=== PATIENT | female | born 1995 | race Caucasian/White ===

== ENCOUNTER 2022-12-15 19:19 | Observation (INO) | payer BC, SELFPAY ==
[2022-12-15 19:30] VITALS: BP 107/68; PULSE 88; RESP 18; TEMP 36.8
[2022-12-15] MEDS: ACETAMINOPHEN 500 MG TABLET 1000 MG PO (19:54)
[2022-12-15 20:02] VITALS: BMI 35.3
--- NOTE | 2022-12-15 20:04 | OBADM ---
This patient, Frances Matos, admitted to the OB room OB Post 116 for observation. Patient/family oriented to hospital policies and general routines including ID bracelet, bed and alarms, visiting hours, pain management, procedures, bathroom and other care routines, personal items, smoking policy, room service/diet, and visiting hours. Patient/Family are encouraged to report perceived risks to care and to ask questions if they do not understand what they are told or what they should do.
--- NOTE | 2022-12-15 20:08 | PC.NURSE ---
1930 - [facility]'s doppled at 136.
--- NOTE | 2022-12-22 08:00 | PM.OBTRLD ---
OB - Triage/Final Diagnosis Visit Information Comments/Additional reasons for admission: I have assessed the risk for this patient, Frances Matos, and determined that she would benefit from observation care. Final Diagnosis (1) Abdominal pain affecting : Code(s): O26.899 - Other specified related conditions, unspecified trimester; R10.9 - Unspecified abdominal pain Status: Acute
== END 2022-12-15 20:00 | disposition home or self-care (01) ==
PROVIDERS: Admitting Provider Obstetrics & Gynecology; PCP Family Medicine; Visit Provider Obstetrics & Gynecology
DX: O26.892 Other specified pregnancy related conditions, second trimester (principal); R10.9 Unspecified abdominal pain; Z3A.21 21 weeks gestation of pregnancy
CPT/HCPCS: 99199; A9270

== ENCOUNTER 2023-03-02 22:54 | Observation (INO) | payer BC, SELFPAY ==
[2023-03-02 23:44] LABS: Appearance Urine Cloudy (Clear); Bilirubin Urine Negative (Negative); Blood Urine Negative (Negative); Color Urine Dark Yellow (Yellow); Glucose Urine UA Negative (Negative); Ketones Urine 2+ mg/dL (Negative); Leukocyte Esterase Ur 2+ LEU/UL (Negative); Nitrate Urine Negative (Negative); Non Pathogenic Casts 0-2; Protein Urine 1+ mg/dL (Negative); RBC Urine 0-2 /hpf (0-2); Specific Grav Ur 1.031 (1.001-1.035); Squamous Epithelial Cell Urine None seen /hpf (Few); WBC Urine 51-100 /hpf
[2023-03-02 23:45] LABS: Bacteria Urine 1+ /hpf
[2023-03-02 23:47] LABS: Add Urine Microscopic? YES
[2023-03-03] VITALS (18 sets, daily range): PULSE 84–107; O2SAT 97–100; BMI 38.4
[2023-03-03] MEDS: TERBUTALINE SULFATE 1 MG/ML VIAL 0.25 MG SUB-Q ×2 (00:15→00:37)
--- NOTE | 2023-03-03 01:48 | OBADM ---
This patient, Frances Matos, admitted to the OB room OB Post 117 for observation. Patient/family oriented to hospital policies and general routines including ID bracelet, bed and alarms, visiting hours, pain management, procedures, bathroom and other care routines, personal items, smoking policy, room service/diet, and visiting hours. Patient/Family are encouraged to report perceived risks to care and to ask questions if they do not understand what they are told or what they should do.
--- NOTE | 2023-03-12 12:11 | P.PNOB_ITS ---
OB - Triage/Final Diagnosis Visit Information Reason for evaluation: threatened labor Comments/Additional reasons for admission: I have assessed the risk for this patient, Frances Matos, and determined that she would benefit from observation care. Evaluation Laboratory results: Laboratory Tests 03/02/23 23:32 Urine Color Dark yellow Urine Appearance Cloudy H Urine pH 6.0 Ur Specific [place] 1.031 Urine Protein 1+ H Urine Glucose (UA) Negative Urine Ketones 2+ H Ur Blood (Man) Negative Urine Nitrate Negative Urine Bilirubin Negative Urine Urobilinogen 1.0 Leukocyte Esterase Rfl 2+ H Urine RBC 0-2 Urine WBC 51-100 H Ur Squamous Epith Cells None seen Urine Bacteria 1+ Urine Casts 0-2
== END 2023-03-03 01:55 | disposition home or self-care (01) ==
PROVIDERS: Admitting Provider Obstetrics & Gynecology; Visit Provider Obstetrics & Gynecology
DX: O47.03 False labor before 37 completed weeks of gestation, third trimester (principal); Z3A.33 33 weeks gestation of pregnancy
CPT/HCPCS: 81001; 87077; 87086; 87088; 96372; G0378; G0379; J3105

== ENCOUNTER 2023-04-02 17:15 | Observation (INO) | payer BC, SELFPAY ==
--- NOTE | 2023-04-02 17:20 | OBADM ---
This patient, Frances Matos, admitted to the OB room Labor/Delivery/Recovery 106 for observation. Patient/family oriented to hospital policies and general routines including ID bracelet, bed and alarms, visiting hours, pain management, procedures, bathroom and other care routines, personal items, smoking policy, room service/diet, and visiting hours. Patient/Family are encouraged to report perceived risks to care and to ask questions if they do not understand what they are told or what they should do.
[2023-04-02 18:00] VITALS: BP 99/55; PULSE 98
[2023-04-02 18:10] VITALS: BMI 38.5
[2023-04-02 18:15] VITALS: BP 99/63; PULSE 96
[2023-04-02 18:30] VITALS: BP 100/65; PULSE 112
--- NOTE | 2023-04-05 13:31 | PM.OBTRLD ---
OB - Triage/Final Diagnosis Visit Information Comments/Additional reasons for admission: I have assessed the risk for this patient, Frances Matos, and determined that she would benefit from observation care.
--- NOTE | 2023-04-05 16:48 | PM.OBTRLD ---
OB - Triage/Final Diagnosis Visit Information Comments/Additional reasons for admission: I have assessed the risk for this patient, Frances Matos, and determined that she would benefit from observation care. Final Diagnosis (1) False labor after 37 completed weeks of gestation: Code(s): O47.1 - False labor at or after 37 completed weeks of gestation Status: Acute
== END 2023-04-02 18:44 | disposition home or self-care (01) ==
PROVIDERS: Admitting Provider Obstetrics & Gynecology; Visit Provider Obstetrics & Gynecology
DX: O47.1 False labor at or after 37 completed weeks of gestation (principal); Z3A.37 37 weeks gestation of pregnancy
CPT/HCPCS: G0378; G0379

== ENCOUNTER 2023-12-08 08:48 | Emergency (ER) | payer BC, SELFPAY ==
--- NOTE | ~2023-12-08 | CT_ITS ---
EXAMINATION: CT abdomen pelvis w con DATE: 12/08/2023 10:55 INDICATION: Right pelvic pain TECHNIQUE: Computed tomography (CT) of the abdomen and pelvis was performed with 100 CC Omnipaque 350 intravenous contrast. Automated exposure control and iterative reconstruction technique were employe d. Exam dose: 935.40 mGy-cm total exam DLP. COMPARISON: None. FINDINGS: Lingular calcified pulmonary granuloma. Minimal dependent bilateral lower lobe atelectasis. Normal heart size. No pericardial or pleural effusion. Small sliding hiatal hernia. The gallbladder is absent. No bile duct or pancreatic duct dilatation. No hepatic, splenic, pancreati c or adrenal or renal space-occupying mass lesion is detected. No urinary tract calculus or hydrouret eronephrosis. The urinary bladder is unremarkable. There is an IUD within the uterus. Normal caliber of the abdominal aorta. No intraperitoneal or retroperitoneal or pelvic mass lesion or adenopathy or ascites. Normal appendix. No bowel obstruction or intraperitoneal free air. There is a metallic density with streak artifact in the left lower quadrant region some small bowel l oops, of uncertain etiology. Included skeletal structures are unremarkable. IMPRESSION: Small sliding hiatal hernia Status post cholecystectomy IUD within uterus Normal appendix Internal metallic foreign body in the left lower quadrant in the region of small bowel loops; clinica l correlation is advised Reviewed, dictated and finalized at [facility]. Reviewed, dictated and finalized at location [facility]. IMPRESSION: Small sliding hiatal hernia Status post cholecystectomy IUD within uterus Normal appendix Internal metallic foreign body in the left lower quadrant in the region of smal l bowel loops; clinical correlation is advised
--- NOTE | 2023-12-08 09:46 | ED.GENADULT ---
HPI - General Adult General Chief complaint: Abdominal Pain Stated complaint: pelvic pain Time Seen by Provider: 12/08/23 09:28 History of Present Illness HPI narrative: Frances Matos is a 28 y/o female with reports of having some mild left lower abdominal pain yesterday. Today around 0800 she statrted to have right lower abdominal pain that goes straight through to her right flank. Pain has been constant. NO nausea/vomiting/last normal BM was today. She has an IUD and has not had a menstrual cycle in several months, she is 7 months of her 3rd child. No recent fever/chills/ no urinary symptoms Related Data Allergies Allergy/AdvReac Type Severity Reaction Status Date / Time No Known Allergies Allergy Unverified 07/26/12 14:26 Review of Systems Review of Systems: CONSTITUTIONAL: Denies fever, chills, or sweats. EYES: Denies visual changes, redness, or discharge. ENT: Denies rhinorrhea, congestion, sore throat, or otalgia. CARDIOVASCULAR: Denies chest pain, palpitations, or edema. RESPIRATORY: Denies cough or dyspnea. GASTROINTESTINAL: + abdominal pain, Denies nausea, vomiting, or diarrhea. GENITOURINARY: Denies dysuria or hematuria. SKIN: Denies rash or itching. MUSCULOSKELETAL: Denies back pain, joint pain, or myalgia. NEUROLOGIC: Denies headache, numbness, dizziness, or weakness. PSYCHIATRIC: Denies anxiety or depression. Exam Narrative: GENERAL: Well-appearing, well-nourished, and in no acute distress. HEAD: Normocephalic, atraumatic. EYES: PERRLA and EOMI. ENT: Nares clear, no rhinorrhea or epistaxis. Mucous membranes moist. Oropharynx without tonsillar hypertrophy exudate or other lesions. Bilateral TMs pearly will non bulging NECK: Supple. No adenopathy or masses. No carotid bruits or JVD CHEST: Clear to auscultation. No respiratory distress. No wheezes rales or rhonchi HEART: Regular rate and rhythm. No murmur heard. Normal peripheral pulses. ABDOMEN: Soft, bowel sounds present / pain with palpation to the right lower quadrant EXTREMITIES: Normal range of motion. No edema. SKIN: Warm, dry, no rash. NEURO: No focal deficits. Alert and oriented x3. PSYCH: Normal mood and affect. Medical Decision Making MDM Narrative Medical decision making narrative: 28 y/o female who presents today with complaints of right lower abdominal pain that stated today goes through to right lower back Denies urinary symptoms/ no nausea/vomiting/ diarrhea Last BM today Concern for : UTI/ Pyelonephritis/ Appendicitis/ ureterolithiasis / constipation/ diverticulitis plan to check labs/ urine/ Ct and treat her pain while waiting on results. Labs are unremarkable with the UA showing mild UTI CT is negative for acute findings - it did mention that there was a small metallic object in her small bowel - talked with pt about this and she states that she accidentally swallowed a small metal ball from her tongue ring yesterday but she wasn't worried as she swallowed her actual longer piece tongue ring before and it passed without issues Patient states her pain is improved and she is feeling better and feels comfortable going home with PO antibiotics for early UTI Close follow up with PCP Strict return precautions provided. Medical Records Medical records reviewed: Yes I reviewed the external patient's medical records. Lab Data Lab results reviewed: Yes I reviewed the patient's lab results. 12/08/23 09:42 12/08/23 09:42 Labs: Lab Results 12/08/23 12/08/23 Range/Units 09:42 09:46 WBC 7.9 (4.5-10.0) K/mm3 RBC 4.45 (4.2-5.4) M/mm3 Hgb 13.4 (12.0-15.0) g/dL Hct 37.5 (37.0-47.0) % MCV 84.3 (80-100) fl MCH 30.1 (26-34) pg MCHC 35.7 (32-36) g/dl RDW 13.4 (11.5-14.5) % Plt Count 319 (150-375) k/mm3 MPV 9.6 (7.4-10.4) fl Immature Gran % (Auto) 0.5 (0-0.5) % Neut % (Auto) 67.2 (45.5-73.1) % Lymph % (Auto) 23.4 (18.3-44.2) % Mon
[2023-12-08 09:48] LABS: Basophils Percent Auto 0.4 % (0.2-1.2); Eosinophils Absolute Auto 0.2 K/mm3 (0-0.3); Eosinophils Percent Auto 1.9 % (0-4.4); Hematocrit 37.5 % (37.0-47.0); Hemoglobin 13.4 g/dL (12.0-15.0); Immature Granulocyte Absolute 0.04 K/mm3 (0.00-0.031); Immature Granulocyte Percent A 0.5 % (0-0.5); Lymphocytes Absolute Auto 1.84 K/mm3 (0.9-3.2); Lymphocytes Percent Auto 23.4 % (18.3-44.2); Mean Corpuscular HGB Conc 35.7 g/dl (32-36); Mean Corpuscular Hemoglobin 30.1 pg (26-34); Mean Corpuscular Volume 84.3 fl (80-100); Mean Platelet Volume 9.6 fl (7.4-10.4); Monocytes Absolute Auto 0.5 K/mm3 (0.1-0.6); Monocytes Percent Auto 6.6 % (2.6-8.5); Neutrophils Absolute Auto 5.3 K/mm3 (1.3-6.7); Neutrophils Percent Auto 67.2 % (45.5-73.1); Platelet Count Result 319 k/mm3 (150-375); Red Blood Count 4.45 M/mm3 (4.2-5.4); Red Cell Distribution Width 13.4 % (11.5-14.5); White Blood Count 7.9 K/mm3 (4.5-10.0)
[2023-12-08 10:00] LABS: Appearance Urine Cloudy (Clear); Bacteria Urine Rare /hpf; Bilirubin Urine Negative (Negative); Blood Urine Trace (Negative); Color Urine Yellow (Yellow); Glucose Urine UA Negative (Negative); Ketones Urine Negative (Negative); Leukocyte Esterase Ur 1+ LEU/UL (Negative); Nitrate Urine Negative (Negative); Non Pathogenic Casts 0-2; Protein Urine Negative (Negative); RBC Urine 0-2 /hpf (0-2); Specific Grav Ur 1.026 (1.001-1.035); Squamous Epithelial Cell Urine Moderate /hpf (Few); pH Urine 5.5 (5.0-9.0)
[2023-12-08 10:02] LABS: Alanine Aminotransferase 24 U/L (6-35); Albumin Level 4.3 g/dL (3.5-5.1); Alkaline Phosphatase 96 U/L (38-126); Anion Gap 6 mmol/L (4-12); Aspartate Amino Transferase 24 U/L (14-36); Bilirubin,Total 0.3 mg/dL (0.2-1.3); Blood Urea Nitrogen 19 mg/dL (7-17); Calcium 8.8 mg/dL (8.4-10.2); Carbon Dioxide 22 mmol/L (22-30); Chloride 109 mmol/L (98-107); Estimated CRCL calculation 121 ml/min; Estimated Glomerular Filt Rate > 60; Glucose 96 mg/dL (65-110); Lipase 63 U/L (23-300); Potassium 4.1 mmol/L (3.4-5.0); Sodium 137 mmol/L (137-145)
[2023-12-08 10:08] LABS: Lactic Acid Reflex 0.8 mmol/L (0.7-2.0)
[2023-12-08 10:22] LABS: Add Urine Microscopic? YES
[2023-12-08] MEDS: SODIUM CHLORIDE 0.9% IV 1,000 ML 999 ML IV CONT (10:38)
[2023-12-08] MEDS: FAMOTIDINE 20 MG/2 ML VIAL IV PUSH (10:38)
[2023-12-08] MEDS: KETOROLAC 30 MG/ML VIAL (*BKC) IV PUSH (10:39)
== END 2023-12-08 12:21 | disposition home or self-care (01) ==
PROVIDERS: Emergency Provider Nurse Practitioner Family
DX: N39.0 Urinary tract infection, site not specified (principal); T18.3XXA Foreign body in small intestine, initial encounter; W44.8XXA Other foreign body entering into or through a natural orifice, initial encounter; Z90.49 Acquired absence of other specified parts of digestive tract; Z97.5 Presence of (intrauterine) contraceptive device; K44.9 Diaphragmatic hernia without obstruction or gangrene
CPT/HCPCS: 36415; 74177; 80053; 81001; 81025; 83605; 83690; 85025; 87086; 96361; 96374; 96375; 99284; J1885; J7030; Q9967

== ENCOUNTER 2024-07-10 19:42 | Emergency (ER) | payer BC, SELFPAY ==
[2024-07-10 19:46] VITALS: BP 120/74; PULSE 98; RESP 20; TEMP 36.6; O2SAT 100
--- NOTE | 2024-07-10 19:50 | ED.EYEPROB ---
HPI - Eye Problem General Chief complaint: Eye Problems Stated complaint: Left Eye Irritation Time Seen by Provider: 07/10/24 19:50 History of Present Illness HPI Narrative: Patient presents with complaints of irritation and pain to the left eye. She reports that she got some yd debris in the affected eye on Wednesday, says that pain is worsening. She reports no change in vision, does report some photophobia. She wears glasses but does not wear contact lenses. She has had some excessive tearing. She denies other injury and trauma. Voices no other concerns or complaints Related Data Allergies Allergy/AdvReac Type Severity Reaction Status Date / Time No Known Allergies Allergy Unverified 07/26/12 14:26 Review of Systems Review of Systems: All systems reviewed & are unremarkable except as noted in HPI and below Constitutional: Constitutional: Reports no additional constitutional complaints Eyes: Eyes: Reports as per HPI, Denies change in vision, Reports irritation, Denies loss of vision, Reports eye pain and Reports photophobia ENT: Reports system reviewed and no additional complaints, except as documented Cardiovascular: Cardiovascular: Reports no additional cardiovascular complaints Respiratory: Respiratory: Reports no additional respiratory complaints Gastrointestinal: Gastrointestinal: Reports no additional gastrointestinal complaints Exam Const: General: cooperative, no acute distress, alert and awake Orientation/consciousness: oriented to person, oriented to place and oriented to time HENMT: Head: normal to inspection Eyes: Eyelids: eyelids normal Conjunctivae: conjunctival abnormality left conjunctival injection Sclera: scleral abnormality left scleral injection Cornea: corneas abnormal on the left fluorescein used and abrasion punctate Resp: Effort & Inspection: normal respiratory effort and able to speak in complete sentences Auscultation: clear to auscultation bilaterally, no crackles, no rales, no rhonchi and no wheezes Cardio: Palpation: normal PMI Rate: regular rate Rhythm: regular rhythm Heart sounds: S1 normal heart sound present and S2 normal heart sound present Neuro: General: oriented to person, oriented to place and oriented to time Cranial nerves: Yes CN's II-XII intact bilaterally Psych: Appearance: grossly normal Thought process: Normal thought process present Insight: Good insight present (Psych) Judgement: Good judgement present (Psych) Course Course Level of Care: Express Care Visit Vital Signs Vital signs: Vital Signs Temperature 97.9 F 07/10/24 19:46 Pulse Rate 98 07/10/24 19:46 Respiratory Rate 20 07/10/24 19:46 Blood Pressure 120/74 07/10/24 19:46 Pulse Oximetry 100 07/10/24 19:46 Oxygen Delivery Room Air 07/10/24 19:46 Temperature 97.9 F 07/10/24 19:46 Pulse Rate 98 07/10/24 19:46 Respiratory Rate 20 07/10/24 19:46 Blood Pressure 120/74 07/10/24 19:46 Pulse Oximetry 100 07/10/24 19:46 Oxygen Delivery Room Air 07/10/24 19:46 MDM - Eye Problem MDM Narrative Medical decision making narrative: History and exam consistent with corneal abrasion. Start antibiotic eye drops to affected eye. Follow with eye care provider as scheduled later this week. Emergency department for new or worse symptoms. Discharge instructions reviewed with patient, as well as provided in writing per nursing staff. The instructions also include specific and strict return/GO TO THE ER as well as f/u information. All questions have been answered, and the patient deny any further questions with discharge and discharge plan. Some parts of this dictation were generated by voice recognition software and may contain typographical and/or grammatical inaccuracies. Differential Diagnosis Differential diagnosis: Likely corneal abrasion and conjunctivitis Medical Records Attestation: I reviewed the patient's medical records. Discharge Plan Discharge Clinical Impression: Abrasion, corneal Patient Disposition: Home, Self-Care Condition: Stable Instructions: Antibiotic Form, Corneal Abrasion (ED) Additional Instructions: Take medications as prescribed. Follow with mining professionals as scheduled. Emergency department for new or worse symptoms Patient Language: Frisian Prescriptions: New tobramycin 0.3 % drops 1 drp LEFT EYE Q4H Qty: 5 0RF Follow-up/Referrals: Toribio,Mireya Aguilar MD [Primary Care Provider] - 1 Week Time of Disposition: 20:05
[2024-07-10] MEDS: TETRACAINE HCL 0.5% OPHTH SOLN 4 ML BTL 1 DROP AFFCTD EYE (19:57)
[2024-07-10] MEDS: FLUORESCEIN SOD 1 MG/STRIP AFFCTD EYE (19:57)
== END 2024-07-10 20:08 | disposition home or self-care (01) ==
PROVIDERS: Emergency Provider Nurse Practitioner Family; PCP Family Medicine
DX: S05.02XA Injury of conjunctiva and corneal abrasion without foreign body, left eye, initial encounter (principal); X58.XXXA Exposure to other specified factors, initial encounter
CPT/HCPCS: 99213; G0463

== ENCOUNTER 2025-04-25 11:49 | Emergency (ER) | payer BC, SELFPAY ==
--- NOTE | ~2025-04-25 | XR_ITS ---
EXAM/PROCEDURE: XR chest 2V - 04/25/2025 12:40 CDT HISTORY: 29 years old Female with left CP x 2 hrs TECHNIQUE: Two view(s) of the chest. COMPARISON: None available. FINDINGS: LUNGS/ PLEURA: No focal consolidation. No appreciable pneumothorax or large pleural effusion. HEART/ MEDIASTINUM: Heart appears normal in size. BONES: No acute osseous abnormality. OTHER: Visualized upper abdomen is unremarkable. IMPRESSION: No acute process. Reviewed, dictated and finalized at location A. IMPRESSION: No acute process.
--- NOTE | 2025-04-25 11:51 | ECG_ITS ---
Test Date: 2025-04-25 11:58:06 Measurements Intervals [place] Rate: 84 P: 40 MT: 141 QRS: 56 QRSD: 84 T: 49 QT: 350 QTc: 414 Interpretive Statements SINUS RHYTHM DELAYED PRECORDIAL R/S TRANSITION BORDERLINE ST-T WAVE ABNORMALITY- ANTERIOR LEADS BASELINE ARTIFACT- I, II, III, AVR, AVL, AVF, V1-V2 BORDERLINE ECG No previous ECG available for comparison Electronically Signed On 04-25-2025 13:32:48 CDT by Barry Avila D.O.
[2025-04-25 11:58] VITALS: BP 104/66; PULSE 84; RESP 16; TEMP 37.2; O2SAT 100
[2025-04-25 12:07] LABS: Hematocrit 40.0 % (37.0-47.0); Hemoglobin 13.9 g/dL (12.0-15.0); Immature Granulocyte Percent A 0.5 % (0-0.5); Lymphocytes Absolute Auto 2.04 K/mm3 (0.9-3.2); Mean Corpuscular HGB Conc 34.8 g/dl (32-36); Mean Corpuscular Hemoglobin 29.6 pg (26-34); Mean Corpuscular Volume 85.1 fl (80-100); Nucleated Red Blood Cells Absolute Auto 0.000 K/mm3 (0.0-0.012); Nucleated Red Blood Cells Perc 0.0 % (0.0-0.2); Platelet Count Result 342 k/mm3 (150-375); Red Blood Count 4.70 M/mm3 (4.2-5.4); White Blood Count 10.2 K/mm3 (4.5-10.0)
--- OUTSIDE RECORDS SUMMARY | 2025-04-25 12:14 | XMS_ITS | Patient Health Record ---
Author Organization [facility] Address [address] [place] [address] Care Team Providers Care Steel Welder Name Role Phone Sean Dean Primary Care Provider Alisha Brian [phone] Allergies No Known Allergies Reason For Referral No Information Medications Medication SIG (Take, Route, Frequency, Duration) Notes Start Date End Date Status Fluticasone Propionate 50 MCG/ACT 2 sprays in each nostril Nasally at night; Duration: 30 day(s) 07/16/2021 Active Cetirizine HCl 10 MG 1 tablet Orally at night; Duration: 30 day(s) 07/16/2021 Active Vistaril 50 MG 1 capsule as needed for anxiety and 2 at night for sleep Orally twice a day as directed; Duration: 30 days Active Pseudoephedrine HCl 60 MG 1 tablet as ne eded Orally every 6 hrs 07/30/2021 Active LaMICtal 100 MG 1/2 tablet for 1 wee k then increase to 1 tablet Orally daily; Duration: 30 days Active Nicorette 4 MG 1 lozenge as needed Mouth/Throat EVERY 4 HOURS 07/30/2021 Not-Taking Prazosin HCl 1 MG 1 capsule at bedtime Orally at night; Duration: 30 day(s) Active Mirena Active Social History Tobacco Use: Social History Observation Description Date Details (start date - stop date) Current Smoker NA - NA Sex Assigned At : Social History Observation Description Sex Assigned At Female Dont use, Tobacco Use/Smoking Question Answer Notes Are you a current every day smoker Alcohol Screen (Audit-C) Question Answer Notes Did you have a drink containing alcohol in the p ast year? Yes Problems Problem Type SNOMED Code ICD Code Onset Dates Problem Status W/U Status Risk Notes Problem Generalized anxiety disorder (38555989) Generalized anxiety disorder (F41.1) Active confirmed Problem Chronic rhinitis (36226724) Chronic rhinitis (J31.0) Active confirmed Problem Mood disorder (31544281) Mood disorder (F39) Active confirmed Problem Posttraumatic stress disorder (74191173) PTSD (post-traumatic stress disorder) (F43.10) Active confirmed PCL-C 66 Problem Vitamin D deficiency (28275131) Vitamin D deficiency (E55.9) Active confirmed Problem Chronic fatigue syndrome (54304883) Chronic fatigue (R53.82) Active confirmed Problem Tobacco use (068474962) Tobacco use disorder (F17.200) Active confirmed Problem Obesity (607904506) Obesity, unspecified classification, unspecified obesity type, unspecified whether serious comorbidity present (E66.9) Active confirmed Problem Major depression, single episode (92674154) Chronic depressive disorder (F32.9) 07/30/20 21 Active confirmed Problem Bilateral chronic serous otitis (643261949) Chronic serous otitis media of both ears (H65.23) Active confirmed Plan Of Treatment No Information Insurance Providers Payer Name Payer Address Payer Phone Subscriber Number Group Number Insured Name Patient Relationship to Insured Coverage Start Date Coverage End Date [facility] [address] [place] [phone] [id number] Frances Matos Self - patient is the insured 9 [facility] [address] [place] [address] [phone] [id number] Frances Matos Self - patient is the insured 1 [facility] [address] [place] [phone] [id number] Frances Matos Self - patient is the insured 9 Medical (General) History Surgical History Surgery Date(Month/Year) Hospitalization History Reason Date(Month/Year)
--- OUTSIDE RECORDS SUMMARY | 2025-04-25 12:14 | XMS_ITS | Clinical Summary ---
Author Organization [facility] Address [address] [place] [address] Care Team Providers Care Automatic Developer Name Role Phone Unavailable Primary Care Provider Unavailabl e Source Comments [facility],non-owned Affiliates and Associated Physician Practices is amultiple site organization consisting of ambulatory clinics and hospital sitesin [place], [place], [place] and [place]. This disclosure is being madepursuant to the Care Everywhere program and may not contain all information available regarding this patient. 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 Gender Identity Not on file Sexual Orientation Not on file Plan of Treatment Health Maintenance Due Date Last Done Comments HIV SCREENING 2011 HEPATITIS C SCREENING 06/03/2014 DTAP/TDAP/TD VACCINES (1 - Tdap) 2015 HEPATITIS B VACCINE (1 of 3 - 19+ 3-dose series) 2015 PAP SMEAR 2017 HPV VACCINE (1 - 3-dose SCDM series) 2023 COVID-19 VACCINE (1 - 2023-2 5 season) 2024 DEPRESSION SCREENING 09/06/2024 INFLUENZA VACCINE (#1) 2025 07/03/2015 ZOSTER VACCINE (1 of 2) 2046 HIB VACCINE Aged Out No longer eligi ble based on patient's age to complete this topic MENINGOCOCCAL (Group B) VACC INE SHARED DECISION-MAKING Aged Out No longer eligibl e based on patient's age to complete this topic MENINGOCOCCAL GROUPS A/C/Y/W VACCINE Aged Out No longer eligible b ased on patient's age to complete this topic PNEUMOCOCCAL VACCINE Aged Out No long er eligible based on patient's age to complete this topic Insurance [facility] MEDICAID
--- OUTSIDE RECORDS SUMMARY | 2025-04-25 12:14 | XMS_ITS | Clinical Summary ---
Author Organization [facility] Address [address] [place] [id number] Care Team Providers Care Tool Straightener Name Role Phone None, Provider MD Primary Care Provider Unavaila ble Allergies No known active allergies Medications magnesium oxide (MAG-OX) 400 (240 Mg) MG tablet Take 1 tablet (400 mg total) by mouth daily. 03/30/2023 Active pantoprazole EC (PROTONIX) 40 MG tablet Take 1 tablet (40 mg total) by mouth daily. 03/30/2023 Active vitamin, low iron, 27-0.8 MG tablet Take 1 tablet by mouth daily. 30 tablet 3 04/20/2023 Active Active Problems Problem Noted Date Diagnosed Date Vaginal delivery ([facility]) 04/19/2023 Resolved Problems Problem Noted Date Diagnosed Date Resolved Date ([facility]) 04/17/2023 04/19/20 23 Immunizations Immunization Administration Dates Next Due Tdap (Boostrix) 04/15/2023 Family History Medical History Relation Comments No Known Problems Father No Known Problems Mother Relation Status Comments Father Mother Social History Tobacco Use Types Packs/Day Years Used Date Smoking Tobacco: Never Smokeless Tobacco: Never Tobacco Cessation:Counseling Given: Not Answered Alcohol Use Standard Drinks/Week Comments Not Currently 0 (1 standard drink = 0.6 oz pur e alcohol) Humiliation, Afraid, Rape, and Kick questionnair e Answer Date Recorded Within the last year, have y ou been afraid of your partner or ex-partner? No 04/19/2023 Within the last year, have y ou been humiliated or emotionally abused in other ways by your partner or ex-partner? No Within the last year, have y ou been kicked, hit, slapped, or otherwise physically hurt by your partner or ex-partner? No 04/19/2023 Within the last year, have y ou been raped or forced to have any kind of sexual activity by your partner or ex-partner? No 04/19/2023 Social Connection and Isolat ion Panel [NHANES] Answer Date Recorded In a typical week, how many times do you talk on the phone with family, friends, or neighbors? More than three times a week 04/19/2023 How often do you get togethe r with friends or relatives? More than three times a week 04/19/2023 How often do you attend chur or druze services? Never 04/19/2023 Do you belong to any clubs o r organizations such as cheondoism groups, unions, fraternal or athletic groups, or school groups? No 04/19/2023 How often do you attend meet ings of the clubs or organizations you belong to? Never 04/19/2023 Are you , , di vorced, , never , or living with a partner? Living with partner 04/19/2023 AUDIT-C Answer Date Recorded Q1: How often do you have a drink containing alcohol? Never 04/19/2023 Q2: How many drinks containi ng alcohol do you have on a typical day when you are drinking? Patient does not drink Q3: How often do you have si x or more drinks on one occasion? Never 04/19/2023 Overall Financial Resource Strain (CARDIA) Answe r Date Recorded How hard is it for you to pa y for the very basics like food, housing, medical care, and heating? Not hard at all 04/19/2023 [facility] [place] [facility] Occupat ional Health - Occupational Stress Questionnaire Answer Date Recorded Do you feel stress - tense, restless, nervous, or anxious, or unable to sleep at night because your mind is troubled all the time - these days? Not at all 04/19/2023 Exercise Vital Sign Answer Date Recorde d On average, how many days pe r week do you engage in moderate to strenuous exercise (like a brisk walk)? 3 days 04/19/2023 On average, how many minutes do you engage in exercise at this level? 30 min 04/19/2023 Hunger Vital Sign Answer Date Recorded Within the past 12 months, y ou worried that your food would run out before you got the money to buy more. Never true 04/19/20 23 Within the past 12 months, t he food you bought just didn't last and you didn't have money to get more. Never true 04/19/2023 PRAPARE - Transportation Answer Date Re corded In the past 12 months, has l ack of transportation kept you from medical appointments or from getting medications? No 04/06 In the past 12 months, has l ack of transportation kept you from meetings, work, or from getting things needed for daily living? No 04/19/2023 Housing Stability Vital Sign Answer Jorge e Recorded In the last 12 months, was t here a time when you were not able to pay the mortgage or rent on time? No 04/19/2023 In the last 12 months, how many places have you lived? 2 04/19/2023 In the last 12 months, was t here a time when you did not have a steady place to sleep or slept in a residential (including now)? No 04/19/2023 Depression Answer Date Recor ded Last EPDS Total Score 7 04/19/2023 Last EPDS Self Harm Result Unrecognized value Comments No Sex and Gender Information Value Date Recorded Sex Assigned at Not on file Legal Sex Female 7:57 PM CDT Gender Identity Not on file Sexual Orientation Not on file Last Filed Vital Signs Vital Sign Reading Time Taken Comments Blood Pressure 95/64 04/19/2023 7:12 AM CDT Pulse 85 04/19/2023 7:12 AM CDT Temperature 36.6 C (97.9 F) 04/19/2023 7:12 AM CDT Respiratory Rate 16 04/19/2023 7:12 AM CDT Oxygen Saturation 99% 04/19/2023 7:12 AM CDT Inhaled Oxygen Concentration - - Weight 93 kg (205 lb) 04/17/2023 9:31 AM CDT Height 154.9 cm (5' 1) 04/17/2023 9:31 AM CDT Body Mass Index 38.73 04/17/2023 9:31 AM CDT Plan of Treatment Health Maintenance Due Date Last Done Comments Cervical Cancer Screening Pap Smear (Age 21 to 29) Every 3 Years 1996 Cervical Cancer Screening 1996 Annual Physical 1999 HPV Vaccines (1 - 3-dose SCDM series) 2023 COVID-19 Vaccine ( season) 2024 DTaP, Tdap and Td Vaccines (6 - Td or Tdap) 04/15/2033 04/15/2023, 02/06/2019, 10/07/2015, Additional history exists Hepatitis B Vaccines Completed 06/08/1997, 1996, 1996 Hepatitis C Completed 10/01/2022 Meningococcal B Vaccine Aged Out No l onger eligible based on patient's age to complete this topic Meningococcal Vaccine Aged Out No van rachid eligible based on patient's age to complete this topic Pneumococcal Vaccine: Pediatrics (0 to 5 Years) and At-Risk Patients (6 to 49 Years) Aged Out No longer eligible based on patient's age to complete this topic RSV Immunizations Under 20 Months Aged Out No longer eligible based on patient's age to complete this topic Procedures Procedure Name Priority Date/Time Associated Diagnosis Comments HEPATITIS C ANTIBODY Routine 10/01/2022 from Last 3 Months or Most Recently Relevant to Health Maintenance Results * HEPATITIS C ANTIBODY (10/01/2022) HEPATITIS C AB Negative Narrative Resulting Agency Comment us Default History Genericprovider LABORATORY Final Result from Last 3 Months or Most Recently Relevant to Health Maintenance Insurance [facility] Advance Directives * Full Code (Latest Code Status on File) Date Activated Date Inactivated Comments 04/17/2023 9:15 AM 04/18/2023 7:13 AM Care Teams Tool Straightener Relationship Specialty Start Date End Date None, Provider, MD PCP - General UNKNOWN PHYSICIAN SPECIALTY 09/07/22
[2025-04-25 12:24] LABS: INR 1.0; Prothrombin Time 13.0 Seconds (11.1-14.7)
[2025-04-25 12:25] LABS: Partial Thromboplastin Time 29.4 Seconds (22.3-36.8)
[2025-04-25 12:27] LABS: Alanine Aminotransferase 34 U/L (6-35); Albumin Level 4.3 g/dL (3.5-5.1); Alkaline Phosphatase 93 U/L (38-126); Anion Gap 11 mmol/L (4-12); Aspartate Amino Transferase 31 U/L (14-36); Bilirubin,Total 0.5 mg/dL (0.2-1.3); Blood Urea Nitrogen 16 mg/dL (7-17); Calcium 9.3 mg/dL (8.4-10.2); Carbon Dioxide 21 mmol/L (22-30); Chloride 107 mmol/L (98-107); Estimated CRCL calculation 110 ml/min; Estimated Glomerular Filt Rate > 60; Glucose 97 mg/dL (65-110); Lipase 51 U/L (23-300); Potassium 4.5 mmol/L (3.4-5.0); Sodium 139 mmol/L (137-145); Total Protein 7.6 g/dL (6.3-8.2)
[2025-04-25 12:37] LABS: Troponin I < 0.012 ng/mL (0.000-0.034)
[2025-04-25 13:01] VITALS: BP 106/58; PULSE 71; RESP 15; O2SAT 99
--- OUTSIDE RECORDS SUMMARY | 2025-04-25 13:28 | XMS_ITS | Clinical Summary ---
Author Organization [facility] Address [address] [place] [address] Care Team Providers Care Spin Instructor Name Role Phone Unavailable Primary Care Provider Unavailabl e Source Comments [facility],non-owned Affiliates and Associated Physician Practices is amultiple site organization consisting of ambulatory clinics and hospital sitesin [place], [place], [place] and [place]. This disclosure is being madepursuant to the Care Everywhere program and may not contain all information available regarding this patient. 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
--- OUTSIDE RECORDS SUMMARY | 2025-04-25 13:28 | XMS_ITS | Clinical Summary ---
Author Organization [facility] Address [address] [place] [id number] Care Team Providers Care Vice President Of Sales Name Role Phone None, Provider MD Primary [...] Problem Noted Date Diagnosed Date Vaginal delivery ([facility]) 04/19/2023 Resolved Problems Problem Noted Date Diagnosed Date Resolved Date ([facility]) 04/17/2023 04/19/20 23 Immunizations Immunization Administration Dates [...] How often do you attend chur or spiritism services? Never 04/19/2023 Do you belong to any clubs o r organizations such as lutheran groups, unions, fraternal or athletic groups, or [...] and heating? Not hard at all 04/19/2023 [facility] [place] of Occupat ional Health - Occupational Stress [...] place to sleep or slept in a nursing home (including now)? No 04/19/2023 Depression Answer Date [...] Most Recently Relevant to Health Maintenance Insurance [facility] Advance Directives * Full Code (Latest Code Status on File) Date Activated Date Inactivated Comments 04/17/2023 9:15 AM 04/18/2023 7:13 AM Care Teams Vice President Of Sales Relationship Specialty Start Date End Date None, Provider, MD PCP - General UNKNOWN PHYSICIAN SPECIALTY 09/07/22
[2025-04-25 13:38] VITALS: PULSE 74
[2025-04-25] MEDS: KETOROLAC 15 MG/ML VIAL (*BKC) IV PUSH (13:38)
[2025-04-25 13:51] LABS: Influenza A QL RT-PCR Negative (Negative); Influenza B QL RT-PCR Negative (Negative); RSV RNA, RT-PCR Negative (Negative); SARS-CoV-2 RNA PCR Negative (Negative)
[2025-04-25 14:01] VITALS: BP 98/64; PULSE 58; RESP 16; TEMP 36.6; O2SAT 98
[2025-04-25 14:34] VITALS: BP 96/61; PULSE 59; RESP 18; TEMP 36.6; O2SAT 99
[2025-04-25 15:01] VITALS: BP 110/72; PULSE 59; RESP 18; TEMP 36.6; O2SAT 99
[2025-04-25 15:11] LABS: Troponin I < 0.012 ng/mL (0.000-0.034)
--- NOTE | 2025-04-25 15:34 | ED.CHESTPAIN ---
HPI - Chest Pain General Chief Complaint: Chest Pain Stated Complaint: Left chest pain x 2hrs Time Seen by Provider: 04/25/25 12:57 Source: patient Mode of arrival: ambulatory Limitations: no limitations History of Present Illness HPI narrative: 29-year-old otherwise healthy here with a complains of midsternal chest pain started 2 hours ago. Patient states that she was sitting on a couch all of a sudden developed a sharp shooting pain in the mid chest area for. She denies any shortness of breath. Patient states that every time she takes a deep breath she has pain mid chest. No history of cough or fever or chills. No previous history of CAD MD complaint: chest pain Onset (ago): hour(s) (2) Timing of current episode: constant Onset: during rest Pain location: parasternal Pain radiation: none Severity: moderate Quality: sharp and shooting Relieving factors: nothing Exacerbating factors: nothing Context: recent illness Related Data Allergies Allergy/AdvReac Type Severity Reaction Status Date / Time No Known Allergies Allergy Unverified 04/25/25 11:50 Review of Systems Review of Systems: All systems reviewed & are unremarkable except as noted in HPI and below Constitutional: Constitutional: Reports no additional constitutional complaints Eyes: Eyes: Reports no additional eye complaints ENT: Reports system reviewed and no additional complaints, except as documented Cardiovascular: Cardiovascular: Reports as per HPI Respiratory: Respiratory: Reports no additional respiratory complaints Gastrointestinal: Gastrointestinal: Reports no additional gastrointestinal complaints Musculoskeletal: Musculoskeletal: Reports no additional musculoskeletal complaints Exam Narrative: GENERAL: Well-appearing, well-nourished, and in no acute distress. HEAD: Normocephalic, atraumatic. EYES: PERRLA and EOMI. ENT: Nares clear, no rhinorrhea or epistaxis. Mucous membranes moist. NECK: Supple. CHEST: Clear to auscultation. No respiratory distress. HEART: Regular rate and rhythm. No murmur heard. Normal peripheral pulses. ABDOMEN: Soft, nontender, nondistended, normal active bowel sounds. EXTREMITIES: Normal range of motion. No edema. SKIN: Warm, dry, no rash. NEURO: No focal deficits. Alert and oriented x3. PSYCH: Normal mood and affect. Course Course Emergency Course: Patient comfortably resting in no discomfort informed about a EKG lab work, chest x-ray findings. Cause of her pain is most likely noncardiac. Advised her to continue to follow with the primary now Vital Signs Vital signs: Vital Signs Temperature 37.2 C 04/25/25 11:58 Pulse Rate 84 04/25/25 11:58 Respiratory Rate 16 04/25/25 11:58 Blood Pressure 104/66 04/25/25 11:58 Pulse Oximetry 100 04/25/25 11:58 Temperature 36.6 C 04/25/25 15:01 Pulse Rate 59 L 04/25/25 15:01 Respiratory Rate 18 04/25/25 15:01 Blood Pressure 110/72 04/25/25 15:01 Pulse Oximetry 99 04/25/25 15:01 Oxygen Delivery Room Air 04/25/25 12:47 MDM - Chest Pain Differential Diagnosis Differential diagnosis: Likely stable angina, atypical chest pain, chest pain and other (PE) Medical Records Data Attestation: I reviewed the patient's medical records. Lab Data Attestation: I reviewed the patient's lab results. 04/25/25 12:01 04/25/25 12:01 Labs: Lab Results 04/25/25 04/25/25 04/25/25 Range/Units 12:01 12:01 13:09 WBC 10.2 H (4.5-10.0) K/mm3 RBC 4.70 (4.2-5.4) M/mm3 Hgb 13.9 (12.0-15.0) g/dL Hct 40.0 (37.0-47.0) % MCV 85.1 (80-100) fl MCH 29.6 (26-34) pg MCHC 34.8 (32-36) g/dl RDW 13.3 (11.5-14.5) % Plt Count 342 (150-375) k/mm3 MPV 9.5 (7.4-10.4) fl Immature Gran % (Auto) 0.5 (0-0.5) % Neut % (Auto) 70.7 (45.5-73.1) % Lymph % (Auto) 20.1 (18.3-44.2) % [place] % (Auto) 7.0 (2.6-8.5) % Eos % (Auto) 1.4 (0-4.4) % Baso % (Auto) 0.3 (0.2-1.2) % Lymph # (Auto) 2.04 (0.9-3.2) K/mm3 [place] # (Auto) 0.7 H (0.1-0.6) K/mm3 Eos # (Auto) 0.1 (0-0.3) K/mm3 Baso # (Auto) 0.0 (0.0-0.1) K/mm3 Abs Immat Gran (auto) 0.05 H (0.00-0.031) K/mm3 Absolute Neuts (auto) 7.2 H (1.3-6.7) K/mm3 Absolute Nucleated RBC 0.000 (0.0-0.012) K/mm3 Nucleated RBC % 0.0 (0.0-0.2) % PT 13.0 (11.1-14.7) Seconds INR 1.0 APTT 29.4 (22.3-36.8) Seconds D-Dimer < 0.27 Pending (<0.48) ug/mL Sodium 139 (137-145) mmol/L Potassium 4.5 (3.4-5.0) mmol/L Chloride 107 (98-107) mmol/L Carbon Dioxide 21 L (22-30) mmol/L Anion Gap 11 (4-12) mmol/L BUN 16 (7-17) mg/dL Creatinine 0.73 (0.7-1.0) mg/dL Estim Creat Clear Calc 110 ml/min Estimated GFR > 60 (59 - ) Glucose 97 (65-110) mg/dL Calcium 9.3 (8.4-10.2) mg/dL Total Bilirubin 0.5 (0.2-1.3) mg/dL AST 31 (14-36) U/L ALT 34 (6-35) U/L Alkaline Phosphatase 93 (38-126) U/L Troponin I < 0.012 (0.000-0.034) ng/mL Total Protein 7.6 (6.3-8.2) g/dL Albumin 4.3 (3.5-5.1) g/dL Lipase 51 (23-300) U/L Influenza A (RT-PCR) Negative (Negative) Influenza B (RT-PCR) Negative (Negative) RSV (RT-PCR) Negative (Negative) SARS-CoV-2 RNA (RT-PCR) Negative (Negative) 04/25/25 Range/Units 14:37 WBC (4.5-10.0) K/mm3 RBC (4.2-5.4) M/mm3 Hgb (12.0-15.0) g/dL Hct (37.0-47.0) % MCV (80-100) fl MCH (26-34) pg MCHC (32-36) g/dl RDW (11.5-14.5) % Plt Count (150-375) k/mm3 MPV (7.4-10.4) fl Immature Gran % (Auto) (0-0.5) % Neut % (Auto) (45.5-73.1) % Lymph % (Auto) (18.3-44.2) % [place] % (Auto) (2.6-8.5) % Eos % (Auto) (0-4.4) % Baso % (Auto) (0.2-1.2) % Lymph # (Auto) (0.9-3.2) K/mm3 [place] # (Auto) (0.1-0.6) K/mm3 Eos # (Auto) (0-0.3) K/mm3 Baso # (Auto) (0.0-0.1) K/mm3 Abs Immat Gran (auto) (0.00-0.031) K/mm3 Absolute Neuts (auto) (1.3-6.7) K/mm3 Absolute Nucleated RBC (0.0-0.012) K/mm3 Nucleated RBC % (0.0-0.2) % PT (11.1-14.7) Seconds INR APTT (22.3-36.8) Seconds D-Dimer (<0.48) ug/mL Sodium (137-145) mmol/L Potassium (3.4-5.0) mmol/L Chloride (98-107) mmol/L Carbon Dioxide (22-30) mmol/L Anion Gap (4-12) mmol/L BUN (7-17) mg/dL Creatinine (0.7-1.0) mg/dL Estim Creat Clear Calc ml/min Estimated GFR (59 - ) Glucose (65-110) mg/dL Calcium (8.4-10.2) mg/dL Total Bilirubin (0.2-1.3) mg/dL AST (14-36) U/L ALT (6-35) U/L Alkaline Phosphatase (38-126) U/L Troponin I < 0.012 (0.000-0.034) ng/mL Total Protein (6.3-8.2) g/dL Albumin (3.5-5.1) g/dL Lipase (23-300) U/L Influenza A (RT-PCR) (Negative) Influenza B (RT-PCR) (Negative) RSV (RT-PCR) (Negative) SARS-CoV-2 RNA (RT-PCR) (Negative) Imaging Data Radiologist's impression: ITS Impressions Chest X-Ray 04/25/25 13:08 IMPRESSION: No acute process. ECG Data EKG #1: ECG completion date: 04/25/25 ECG completion time: 11:58 EKG Interpretation: normal rate (84), sinus rhythm, no ST changes, normal QRS, normal QT and no acute changes Discharge Plan Discharge Clinical Impression: Atypical chest pain Patient Disposition: Home Condition: Stable Instructions: Chest Pain (ED) Patient Language: Arabic Prescriptions: No Action tobramycin 0.3 % drops 1 drp LEFT EYE Q4H Qty: 5 0RF Follow-up/Referrals: PHYSICIAN NOT ON STAFF,NONSTAFF [Primary Care Provider] Stand Alone Forms: Work/School Release IP Time of Disposition: 15:39
== END 2025-04-25 15:53 | disposition home or self-care (01) ==
PROVIDERS: Emergency Medicine; Emergency Provider Family Medicine
DX: R07.89 Other chest pain (principal); Z20.822 Contact with and (suspected) exposure to COVID-19
CPT/HCPCS: 36415; 71046; 80053; 83690; 84484; 85025; 85380; 85610; 85730; 87637; 93005; 96374; 99284; J1885

== ENCOUNTER 2025-08-13 20:16 | Emergency (ER) | payer OTHER, SELFPAY ==
--- OUTSIDE RECORDS SUMMARY | 2019-01-27 05:51 | XMS_ITS | Continuity of Care Document ---
Author Organization [facility] Address [address] [place] [address] Phone Care Team Providers Care Fleet Sales Associate Name Role Phone Shiloh YOO MECHEFabio Unavailable Unavaila ble Allergies, Adverse Reactions, Alerts Substance Reaction Status Criticality No Known Allergies Active No Inform ation Medications Medication Instructions Dosage Dose Quantity Effective Dates (start - stop) Status Indication Fill Status Comments azithromycin 500 mg tablet take 2 tablet by oral route at once 9 - Active Flagyl 500 mg tablet take 1 tablet by ORAL route every 12 hours 500 MG 1 tablet 9 - Active Select-OB + DHA 29 mg iron-1 mg-250 mg oral pack 1 po qd by Oral route Not Availab le 9 - Active Advance Directives Directive Yes / No Effective Date File Name No Information Encounters Encounter Description Practice Location Reason(s) For Visit Diagnoses Date Provider Encounter Disposition [facility] [address], [place], [place], [id number] , [place] tel:[phone] [facility] No Information 9 Shiloh Mccarthy. [address] [place] [address], [address], [place], [address], [place]. tel:[phone] [facility] [address], [place], [place], [id number] , [place] tel:+ [phone] [facility] routine (chief complaint) 23 weeks gestation of pregnancyEncounter for screening, unspecifiedEncounte r for suprvsn of normal , second trimester 9 Nellie Zaragoza. [address] [place] [address], [place], [place], [id number] , [place]. tel: [phone] [facility] [address], [place], [place], [id number] , [place] tel: [phone] [facility] Encounter for suprvsn of normal , second [id number] weeks gestation of pregnancyEncounter for other specified screening Read Nik. [address] [place] [address], [place], [id number] , [place]. tel: [phone] [facility] [address], [place], [id number] , [place] tel: [phone] [facility] routine (chief complaint) Encounter for suprvsn of normal , first [id number] weeks gestation of Nellie Zaragoza. [address] [place] [address], [place], [place], [id number] , [place]. tel: [phone] [facility] [address], [place], [address] , [place] tel: [phone] [facility] routine (chief complaint) Encounter for suprvsn of normal , first [id number] weeks gestation of Nellie Zaragoza. [address] [place] [address], [place], [address] , [place]. tel: [phone] [facility] [address], [place], [address] , [place] tel: [phone] [facility] No Information Read Nik. [address] [place] [address], [place], [address] , [place]. tel: [phone] [facility] [address], [place], [place], [address] , [place] tel: [phone] [facility] NEW PT, NEW OB (chief complaint) Encounter for suprvsn of normal , first [id number] weeks gestation of pregnancyEncounter for screening, unspecified 9 Nellie Zaragoza. [address] [facility], [address], [place], [place], [address] , [place]. tel:[phone] Family History Family Member Type Diagnosis Age At Onset Problem (finding) Family history of Diabe dallas mellitus Problem (finding) Family history of malignant neoplasm of breast in first degree relative Payers Payer name Insurance type Identifiers Authorization(s) [employer] [id number] ID: [id number] Name: Coverage Status Eligibility Check on: [id number] nship to Subscriber: 01 selfPayer Address: [facility] [address], [place] [employer], [place], [id number], [facility] Phone: [phone] Social History Type Description Quantity Date Captured Comments Alcohol Use Details Unknown Caffeine Use Details Unknown Tobacco Use Status No Information Smoking Status No Information Sex Female Current Gender Female (finding) Chief Complaint And Reason For Visit No Information Plan Of Treatment Date Type Action Status Goal Depression screening. Due on due Goal Pap/HPV testing. Due on due Goal Influenza vaccine. Due on due Goal Tdap. Due on due Goal Dilated Eye Exam. Due on January due Goal Td vaccine. Due on 19 due Goal HPV (1st). Due on 9 due Goal Depression screening. Due on due Goal Pap/HPV testing. Due on due Goal Influenza vaccine. Due on due Goal Tdap. Due on due Goal Dilated Eye Exam. Due on Dec due Goal Td vaccine. Due on 19 due Goal HPV (1st). Due on 9 due Goal Pap/HPV testing. Due on due Goal Influenza vaccine. Due on due Goal Tdap. Due on due Goal Dilated Eye Exam. Due on Dec due Goal Depression screening. Due on due Goal Td vaccine. Due on 19 due Goal HPV (1st). Due on 9 due Goal Pap/HPV testing. Due on due Goal Influenza vaccine. Due on due Goal Tdap. Due on due Goal Dilated Eye Exam. Due on Nov due Goal Td vaccine. Due on 19 due Goal HPV (1st). Due on 9 due Goal Depression screening. Due on due History Of Present Illness Encounter Date Complaint History Of Prese nt Illness routine routine routine NEW PT, NEW OB 23 Y/O IS HERE F OR HER FIRST NOB VISIT p:1 x1 Functional Status Date Description Comments No Information Instructions Date Instruction Additional Infor mation No Information Assessments Type Assessment Date No Information
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
[2025-08-13 20:47] VITALS: BP 109/72; PULSE 91; RESP 17; TEMP 37; O2SAT 98
--- OUTSIDE RECORDS SUMMARY | 2025-08-13 20:47 | XMS_ITS | Data Portability ---
Author Organization [facility], Main Office Address [address] [place] [address] Assessment No assessment recorded. Plan of Treatment Reminders Order Date Submit Date Provider Last Modified By Organization Details Last Modified Time Details Appointments None recorded. Lab None recorded. Referral None recorded. Procedures None recorded. Surgeries None recorded. Imaging None recorded. Medication Orders lanolin topical cream 023 023 [id number], [address], [place], [place], [id number], 11:06:20 Patient TargetsNo targets recorded. Patient InstructionsNo instructions recorded. Reason for Referral None Reported. Problems Name Problem SNOMED Code Status Onset Date Resolution Date Notes Provider Name and Address Organization Details Recorded Time Amenorrhea 35615776 Active Not Available [facility] 3 08:47:43 Impacted cerumen 72079461 Active Not Available [facility] 3 08:47:43 Keratosis 971568133 Active PILARIS Not Available [facility] 3 08:47:43 Depressive disorder 28778063 Active Not Available [facility] 3 08:47:43 Seasonal allergy 619396412 Active Not Available [facility] 3 08:47:43 Anxiety 78203705 Active Not Available [facility] 3 08:47:44 Problem Notes None recorded. Procedures Surgical History Date Name Laterality Status Provider Name and Address Organization Details Recorded Time 7 Gallbladder Surgery completed Khloe Mesa CNA [facility] 04/30/2023 10:41:18 Imaging Results None recorded. Procedure Notes None recorded. Medical Equipment None Reported. Allergies Allergen ID Allergen Name Allergen Category Reaction Reaction Severity Criticality Documentation Date Start Date Code Code System Note Provider Name and Address Organization Details Recorded Time 71813 Ortho Evra medicatio n rash Not available Not available 11/04/2022 14694 2 RxNorm Not Available [facility] 3 08:51:21 Medications Name Sig Start Date Stop Date Status Note LastModified by Organization Details LastModified Time terconazole 0.4 % vaginal cream INSERT 1 APPLICATO RFUL VAGINALLY EVERY DAY AT BEDTIME FOR 7 DAYS active Not Available Not Available No t Available metronidazo le 0.75 % (37.5 mg/5 gram) vaginal gel USE 1 APPLICATO RFUL VAGINALLY AT BEDTIME FOR 5 NIGHTS 10/19 completed Not Available Not Available Not Available sertraline 100 mg tablet TAKE 1 TABLET BY MOUTH EVERY DAY active Not Available Not Available No t Available Debrox 6.5 % ear drops Instill 3 drops twice a day by otic route for 7 days. 05/16 completed Not Available Not Available Not Available Zyrtec 10 mg tablet Take 1 tablet every day by oral route as directed. 03/05 completed Not Available Not Available Not Available tramadol 50 mg tablet TAKE 1 TABLET BY MOUTH EVERY 6 HOURS NEEDED FOR PAIN (MODERATE ) 10/19 completed Not Available Not Available Not Available triamcinolo ne acetonide 0.1 % topical cream APPLY A THIN LAYER TO THE AFFECTED AREA(S) BY TOPICAL ROUTE 2 TIMES PER DAY 03/05 completed Not Available Not Available Not Available citalopram 20 mg tablet Take 1 tablet every day by oral route as directed. 03/05 completed Not Available Not Available Not Available magnesium oxide 400 mg (241.3 mg magnesium) tablet TAKE 1 TABLET BY MOUTH DAILY active Not Available Not Available No t Available Depo-Sen[employer] Specialist a 150 mg/mL intramuscul ar suspension Inject 1 mL every 3 months by intramusc ular route. 03/05 completed Not Available Not Available Not Available cephalexin 500 mg capsule TAKE 1 CAPSULE BY MOUTH EVERY 6 HOURS FOR 7 DAYS active Not Available Not Available No t Available pantoprazol e 40 mg tablet,deyanira yed release TAKE 1 TABLET BY MOUTH EVERY DAY active Not Available Not Available No t Available docusate sodium 100 mg capsule TAKE ONE CAPSULE BY MOUTH TWICE DAILY NEEDED FOR CONSTIPAT ION active Not Available Not Available No t Available sertraline 50 mg tablet TAKE 1 TABLET BY MOUTH EVERY DAY active Not Available Not Available No t Available hydroxyzine pamoate 25 mg capsule TAKE ONE CAPSULE BY MOUTH EVERY DAY 10/19 completed Not Available Not Available Not Available lanolin topical cream Apply thin layer to breasts as needed per package instructi ons 2022 active Not Available Not Available Not Avai lable Vitamin 27 mg iron-0.8 mg tablet TAKE 1 TABLET BY MOUTH DAILY active Not Available Not Available No t Available NuvaRing 0.12 mg-0.015 mg/24 hr vaginal INSERT 1 RING VAGINALLY DIRECTED. REMOVE AFTER 3 WEEKS & WAIT 7 DAYS BEFORE INSERTING A NEW RING 10/19 completed Not Available Not Available Not Available Depo-Sen[employer] Methods Specialist a 150 mg/mL intramuscul ar syringe Inject 1 mL every 3 months by intramusc ular route. 03/05 completed Not Available Not Available Not Available 28 mg iron-800 mcg tablet TAKE 1 TABLET BY MOUTH DAILY active Not Available Not Available No t Available 19 (with docusate) 29 mg iron-1 mg-25 mg tablet Take 1 tablet every day by oral route. 10/19 completed Not Available Not Available Not Available Vitals Date Recorded Body weight Body mass index (BMI) Body height Heart rate Oxygen saturation Systolic And Diastolic Provider Name and Address Organization Details Last Updated DateTime 3 89980.5 1 g 36.8 kg/m2 154.94 cm 67 /min 98 % 114/78 mm[Hg] Khloe Mesa CNA [place] [facility] [employer] [facility] 3 10:39:52 Social History None recorded. Functional Status None recorded. Mental Status None recorded. Family History Nothing Reported Notes:diabetes, cad, depress ion Medical History No medical history recorded. Gynecological HistoryNo gynecological history recorded. Obstetrics History GPAL:G 0 P 0 0 0 0 Immunizations Vaccine Type Date Status Note Provider Nam e and Address Organization Details Recorded Time Influenza, split virus, quadrivalent, PF 07/03/2015 completed Not Available [facility] 3 08:51:15 Past Encounters Encounter ID Performer Location Encounter Start Date Encounter Closed Date Diagnosis/Indication Diagnosis SNOMED-CT Code Diagnosis ICD10 Code Diagnosis IMO Codes Diagnosis Note [id number] Mireya Rooney MD [facility] Primary Care [place] [address] [facility] [facility] [place] [address] 04/30/2023 10:30:12 04/30/2023 11:02:02 state 97372684 Z39.2 Delivered baby girl on 04/19/23Sti ll within 6 week management with OB provider.E ncouraged pt to perform fundal massages to help with cramping and bleeding. management 278 632910 Z39.1 Breastfeed ing exclusivel yWill give rx for lanolin cream to help with breast soreness. Patient ne w to provider [phone] 89878 Z76.89 New patient presented for re-admissi on to the practice. Pt to continue to f/u with ob provider until she has past the 6-week period. Discussed plan with patient, who expressed understand ing. Follow up as needed. Health Concerns Section Related Observation LastModified by Organization Detai ls LastModified Time None Recorded Concern Status LastModified by Organization Details LastModified Time None Recorded Advance Directives Directive None Recorded Payers Insurance Date Sequence Insurance Name Policy Number Policy Amezcua Covered Member ID Amezcua Member ID Guarantor Name 05/06/2023 1 [facility] DOS PRIOR TO 2025 (MEDICAID REPLACEMENT - HMO) [id number] Frances Matos [id number] Frances Matos 04/20/2023 1 *SELF PAY* Sa ej Matos Notes Date Note Type Note Provider Name and Address Organization Details Recorded Time 04/30/2023 text/html 1. Pt in office to re-establish care.2. Delivered baby girl on 04/19/23. only. Pt c/o cramping and occasional heavy bleeding. Cramping worst when nursing and using the restroom. Lauryn Don, HOUSEHOLD COORDINATOR [address], [address], [place], [address], [facility] [employer] 04/30/2023 11:07:25 OBGyn Episode No OBEpisode recorded.
--- OUTSIDE RECORDS SUMMARY | 2025-08-13 20:47 | XMS_ITS | Clinical Summary ---
Author Organization [facility] Address [address] [place] [address] Care Team Providers Care Adjuster And Inspector Name Role Phone Unavailable Primary Care Provider Unavailabl e Source Comments [facility],non-owned Affiliates and Associated Physician Practices is amultiple site organization consisting of ambulatory clinics and hospital sitesin [place], [place], [place] and [place]. This disclosure is being madepursuant to the Care Everywhere program and may not contain all information available regarding this patient. Last updated 18.[facility] [employer] Social History Tobacco Use Types Packs/Day Years Used Date Smoking Tobacco: Never Assessed Comments No Sex and Gender Information Value Date Recorded Sex Assigned at Not on file Legal Sex Female 5:39 AM [employer] Gender Identity Not on file Sexual Orientation Not on file Plan of Treatment Health Maintenance Due Date Last Done Comments HIV SCREENING 2011 HEPATITIS C SCREENING 06/03/2014 DTAP/TDAP/TD VACCINES (1 - Tdap) 2015 HEPATITIS B VACCINE (1 of 3 - 19+ 3-dose series) 2015 PAP SMEAR 2017 HPV VACCINE (1 - 3-dose SCDM series) 2023 DEPRESSION SCREENING 09/06/2024 COVID-19 VACCINE (1 - 2024-2 6 season) 2025 INFLUENZA VACCINE (#1) 2025 07/03/2015 ZOSTER VACCINE [...] patient's age to complete this topic Insurance [facility] MEDICAID
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
[2025-08-13] MEDS: ACETAMINOPHEN 500 MG TABLET 1000 MG PO (22:14)
[2025-08-13 22:15] LABS: BEDSIDEPREGUCG Negative (Negative)
[2025-08-13] MEDS: diazePAM INJ (*CRX) 10 MG/2 ML SYRINGE 5 MG IM (22:15)
--- NOTE | 2025-08-13 22:21 | PC.NURSE ---
Pt taken to CT on stretcher
[2025-08-13] MEDS: KETOROLAC 30 MG/ML VIAL (*BKC) IM (23:46)
[2025-08-14 00:02] VITALS: BP 113/83; PULSE 78; RESP 16; O2SAT 99
== END 2025-08-14 00:04 | disposition home or self-care (01) ==
PROVIDERS: Emergency Provider Physician Assistant
DX: S16.1XXA Strain of muscle, fascia and tendon at neck level, initial encounter (principal); V43.52XA Car driver injured in collision with other type car in traffic accident, initial encounter
CPT/HCPCS: 70450; 72125; 72128; 81025; 96372; 99284; A9270; J1885; J3360